=== PATIENT | female | born 1985 | race African-American/Black ===

== ENCOUNTER 2017-01-31 04:52 | Inpatient (IN) ==
[2017-01-31] MEDS: LACTATED RINGERS 1,000 ML IV SCH ×2 (05:20→14:23)
[2017-01-31] MEDS ORDERED: OXYTOCIN/LR 20 UNIT/1,000 ML BAG IV ONE ×2 (05:38→10:45)
[2017-01-31] MEDS ORDERED: ONDANSETRON 4 MG/2 ML VIAL ONE (07:34)
[2017-01-31] MEDS ORDERED: MEPERIDINE 50 MG/1 ML VIAL ONE (07:34)
[2017-01-31] MEDS ORDERED: LIDOCAINE 1% 50 ML VIAL ONE (07:46)
[2017-01-31] MEDS ORDERED: miSOPROStol 200 MCG TABLET ONE (07:47)
[2017-01-31] MEDS ORDERED: METHYLERGONOVINE 0.2 MG/1 ML AMP ONE (07:47)
[2017-01-31] MEDS ORDERED: BUTORPHANOL 1 MG/ML VIAL ONE ×2 (07:47→08:28)
[2017-01-31] MEDS ORDERED: OXYTOCIN/LR 20 UNIT/1,000 ML BAG IV SCH (10:30)
[2017-01-31] MEDS ORDERED: BUTORPHANOL 2 MG/ML VIAL IV PRN (10:39)
[2017-01-31] MEDS ORDERED: ONDANSETRON 4 MG/2 ML VIAL IV PRN ×2 (10:45→11:00)
[2017-01-31] MEDS ORDERED: RHO(D) IMMUNE GLOBULIN 300 MCG SYRINGE IM ONE (10:45)
[2017-01-31] MEDS ORDERED: BISACODYL 10 MG SUPP RECTAL PRN (10:45)
[2017-01-31] MEDS ORDERED: DIPH/TET/ACEL PERT BOOSTER VACCINE 0.5 ML VIAL IM ONE (10:45)
[2017-01-31] MEDS ORDERED: MEASLES/MUMPS/RUBELLA VACCINE 0.5 ML VIAL SUBCUT ONE (10:45)
[2017-01-31] MEDS ORDERED: ACETAMINOPHEN 325 MG TABLET PO PRN (10:45)
[2017-01-31] MEDS ORDERED: HYDROCORTISONE 2.5% RECTAL CREAM 30 GM TUBE TOP PRN (10:45)
[2017-01-31] MEDS ORDERED: BENZOCAINE 20%/MENTHOL 0.5% SPRAY 56 GM CAN TOP PRN (10:45)
[2017-01-31] MEDS ORDERED: oxyCODONE/ACETAMINOPHEN 5-325 MG TABLET PO PRN ×2 (10:45)
[2017-01-31] MEDS ORDERED: WITCH HAZEL PADS 100/JAR TOP PRN (10:45)
[2017-01-31] MEDS ORDERED: IBUPROFEN 800 MG TABLET PO PRN (10:45)
[2017-01-31] MEDS ORDERED: LANOLIN 50% CREAM 0.3 OZ TUBE TOP PRN (10:45)
[2017-01-31] MEDS ORDERED: MEPERIDINE 50 MG/1 ML VIAL IV PRN (11:00)
[2017-01-31 11:48] LABS: Apearance,Urine CLEAR (Clear); Bilirubin,Urine Negative (Negative); Blood, Urine Moderate mg/dL (Negative); Glucose,Urine (UA) Negative (Negative); Ketones,Urine 5 mg/dL (Negative); Mucus,Urine Occasional /LPF (Occasional); Nitrite,Urine Negative (Negative); Protein,Urine Negative; RBC,Urine 12 /HPF (0-4); Squamous Epithelial Cell,Urine Occasional /HPF (0-10); Urine Color Yellow (Yellow); Urine Specific Gravity 1.011 (1.001-1.035); WBC,Urine 1 /HPF (0-6)
[2017-01-31 12:29] LABS: Basophils % 0.4 % (0.0-0.8); Eosinophils # 0.2 10*3/uL (0.0-0.87); Hematocrit 32.5 VOL% (35.7-47.0); Hemoglobin 10.4 GM/DL (12.0-16.0); Immature Granulocytes % 0.6 %; Immature Granulocytes Absolute 0.06 #; Lymphocytes # 2.2 10*3/uL (1.4-4.0); Lymphocytes % 21.9 % (21.3-54.2); Mean Corpuscular Hemoglobin 22 PG (27-34); Mean Corpuscular Volume 69.6 FL (87-102); Mean Platelet Volume 11.6 FL (9.6-12.0); Monocytes # 0.6 10*3/uL (0.11-0.8); Monocytes % 6.1 % (1.7-12.7); Platelet Count 266 T/CUMM (130-400); Red Blood Count 4.67 MC/CUMM (3.8-5.5); Red Cell Distribution Width 16.7 % (9.3-17.3); White Blood Count 10.1 T/CUMM (4-12)
[2017-01-31 12:47] LABS: Albumin 2.2 G/DL (3.4-5.0); Bilirubin,Total 0.4 MG/DL (0.2-1.0); Calcium 8.9 MG/DL (8.5-10.1); Osmolality,Calculated 261.5 MOS/KG (273-304); Potassium 4.5 MMOL/L (3.5-5.1); Total Protein 8.5 G/DL (6.4-8.3)
[2017-01-31] MEDS: DOCUSATE SODIUM 100 MG CAPSULE PO SCH (21:58)
[2017-02-01 06:50] LABS: Basophils % 0.3 % (0.0-0.8); Eosinophils # 0.1 10*3/uL (0.0-0.87); Eosinophils % 0.9 % (0.00-10.9); Hematocrit 29.1 VOL% (35.7-47.0); Hemoglobin 9.3 GM/DL (12.0-16.0); Immature Granulocytes % 0.5 %; Immature Granulocytes Absolute 0.06 #; Lymphocytes # 2.1 10*3/uL (1.4-4.0); Lymphocytes % 18.3 % (21.3-54.2); Mean Corpuscular Hemoglobin 22 PG (27-34); Mean Corpuscular Volume 69.8 FL (87-102); Mean Platelet Volume 11.4 FL (9.6-12.0); Monocytes # 0.7 10*3/uL (0.11-0.8); Monocytes % 6.1 % (1.7-12.7); Neutrophils # 8.4 10*3/uL (1.4-7.4); Neutrophils % 73.9 % (38.7-73.9); Platelet Count 224 T/CUMM (130-400); Red Blood Count 4.17 MC/CUMM (3.8-5.5); Red Cell Distribution Width 16.5 % (9.3-17.3); White Blood Count 11.4 T/CUMM (4-12)
[2017-02-01] MEDS: MULTIVITAMIN (PRENATAL) TABLET PO SCH (09:42)
[2017-02-01] MEDS: DOCUSATE SODIUM 100 MG CAPSULE PO SCH ×2 (09:42→20:26)
[2017-02-02 07:35] VITALS: BP 129/79
[2017-02-02] MEDS: DOCUSATE SODIUM 100 MG CAPSULE PO SCH (09:14)
[2017-02-02] MEDS: MULTIVITAMIN (PRENATAL) TABLET PO SCH (09:14)
== END 2017-02-02 13:15 | disposition home or self-care (01) | DRG 560 ==
LOC: N.LDOUT 04:52 → N.LD 04:53 → N.OB 13:35
PROVIDERS: ADMIT Specialist; ATTEND Specialist